=== PATIENT | male | born 1980 | race Two or more races ===

== ENCOUNTER 2021-02-13 19:38 | Emergency (ER) | payer OTHER, SELFPAY ==
[2021-02-13 20:11] VITALS: BP 132/86; PULSE 76; RESP 15; TEMP 36.6; O2SAT 97; BMI 29.5
[2021-02-13 21:40] LABS: Appearance Urine CLEAR; Color Urine YELLOW; Glucose Urine UA NEG (NEG); Leukocyte Esterase Urine NEG (NEG); Nitrite Urine NEG (NEG); Specific Gravity - Urine >= 1.030 (1.005-1.025); Urine Blood NEG (NEG); Urine Ketones NEG (NEG); Urine Protein NEG (NEG-TRACE)
--- NOTE | 2021-02-13 21:47 | ED_ITS ---
HPI - Male Genitourinary General Chief complaint: Urogenital-Male Stated complaint: ?UTI Time Seen by Provider: 02/13/21 21:47 Source: patient Mode of arrival: ambulatory Limitations: no limitations History of Present Illness HPI Narrative: Patient complaining of dysuria for last 1 week without any frequency or hematuria no history of STDs no rash no fever or chills no flank pain no nausea no vomiting patient does not get UTI very often Related Data Previous Rx's Medication Instructions Recorded phenazopyridine 200 mg tablet 200 mg PO TID PRN 2 Days #5 tab 02/13/21 (Pyridium) Allergies Allergy/AdvReac Type Severity Reaction Status Date / Time No Known Allergies Allergy Verified 02/13/21 22:00 Review of Systems Review of Systems: Yes all other systems are reviewed and are negative [facility] Past Medical History Medical History No known health problems Surgical History No history of previous surgery Social History Social History Advance Directives: No Advance Directives Information Provided: No Physical Exam Vital Signs: Vital Signs: Last Vital Signs Temp 97.8 F 02/13/21 20:11 Pulse 76 02/13/21 20:11 Resp 15 02/13/21 20:11 BP 132/86 02/13/21 20:11 Pulse Ox 97 02/13/21 20:11 Body Mass Index 29.5 Appearance: Alert. Oriented X3. No acute distress. ENT: Pharynx normal. Oral Mucosa moist Neck: Normal inspection. Neck supple. CVS: Normal heart rate and rhythm. Pulses normal. Respiratory: No respiratory distress. Equal air entry bilateral, Abdomen: Soft and nontender. Bowel sounds are present, no mass palpable, no CVA tenderness Skin: Skin warm and dry. Normal skin color. Normal skin turgor. Extremities: No lower extremity edema. No calf tenderness Neuro: Oriented X 3. MDM - Male Genitourinary MDM Narrative Medical decision making narrative: Patient UA negative for UTI patient denies any penile discharge will discharge patient home on Pyridium Lab Data Attestation: I reviewed the patient's lab results. Labs: Lab Results 02/13/21 Range/Units 21:33 Urine Color YELLOW Urine Appearance CLEAR Urine pH 6.0 (5.0-8.0) Ur Specific [place] >= 1.030 H (1.005-1.025) Urine Protein NEG (NEG-TRACE) MG/DL Urine Glucose (UA) NEG (NEG) MG/DL Urine Ketones NEG (NEG) MG/DL Urine Blood NEG (NEG) Urine Nitrite NEG (NEG) Ur Leukocyte Esterase NEG (NEG) Discharge Plan Discharge Clinical Impression: Dysuria Patient Disposition: Home, Self-Care Instructions: Dysuria (ED) Additional Instructions: Your urine is negative for infection Take medication for pain in the urination as advised Prescriptions: New phenazopyridine [Pyridium] 200 mg tablet 200 mg PO TID PRN (Reason: pain) 2 Days Qty: 5 RF: 0 Interventions: ED Discharge Assessment Last Done: 02/13/21 22:13 Discharge Date/Time: 02/13/21 22:14
[2021-02-13] MEDS: Phenazopyridine HCL 200 MG TABLET PO (22:09)
== END 2021-02-13 22:14 | disposition home or self-care (01) ==
PROVIDERS: Emergency Provider Internal Medicine
DX: R30.0 Dysuria (principal); Z79.899 Other long term (current) drug therapy
CPT/HCPCS: 81003; 99283; 99284